=== PATIENT | male | born 2000 | race Caucasian/White ===

== ENCOUNTER 2025-08-03 19:53 | Emergency (ER) | payer BC ==
[~2025-08-03] VITALS: Ht 170.2 cm; Wt 89.4 kg
[2025-08-03 20:07] VITALS: O2SAT 100
[2025-08-03] MEDS: IBUPROFEN 400MG TABLET PO ONE (21:45)
[2025-08-03] MEDS: LIDOCAINE HCL 1% 20ML VIAL INFIL ONE (21:45)
[2025-08-03] MEDS: TETANUS, DIPHTHERIA, PERTUSSIS VAC/PF 0.5ML (>10YR OLD) IM ONE (22:15)
[2025-08-03] MEDS ORDERED: CEPH500C2 MT (23:25)
[2025-08-03] MEDS ORDERED: BO1 TP (23:25)
[2025-08-03] MEDS: BACITRACIN ZINC OINT UDPKT TOP ONE (23:30)
[2025-08-03 23:57] VITALS: BP 131/68; PULSE 77; RESP 16; TEMP 36.8; O2SAT 98
== END 2025-08-03 23:58 | disposition home or self-care (01) ==
LOC: ER 19:53
DX: S61.412A Laceration without foreign body of left hand, initial encounter (principal); Z79.899 Other long term (current) drug therapy; X58.XXXA Exposure to other specified factors, initial encounter; Y93.89 Activity, other specified; Y92.89 Other specified places as the place of occurrence of the external cause; Y99.8 Other external cause status
CPT/HCPCS: 73120; 90715; 12002; 90471; 99283; J2003; Z7610

== ENCOUNTER 2025-08-06 12:34 | Emergency (ER) | payer BC ==
[~2025-08-06] VITALS: Ht 170.2 cm; Wt 90.0 kg
[~2025-08-06 12:34] MED LIST: BO1 TP; CEPH500C2 MT
[2025-08-06 12:35] VITALS: O2SAT 98
[2025-08-06 12:40] VITALS: BP 115/74; PULSE 75; RESP 16; TEMP 36.7; O2SAT 99
== END 2025-08-06 13:10 | disposition home or self-care (01) ==
LOC: ER 12:34
DX: S61.412D Laceration without foreign body of left hand, subsequent encounter (principal); X58.XXXD Exposure to other specified factors, subsequent encounter
CPT/HCPCS: 99282

== ENCOUNTER 2025-08-10 10:31 | Emergency (ER) | payer BC ==
[~2025-08-10] VITALS: Ht 170.2 cm; Wt 72.0 kg
[2025-08-10 10:33] VITALS: O2SAT 99
[2025-08-10 10:34] VITALS: BP 119/77; PULSE 84; RESP 18; TEMP 36.7; O2SAT 100
== END 2025-08-10 10:55 | disposition home or self-care (01) ==
LOC: ER 10:31
DX: S61.412D Laceration without foreign body of left hand, subsequent encounter (principal); X58.XXXD Exposure to other specified factors, subsequent encounter
CPT/HCPCS: 99282